=== PATIENT | male | born 1970 | race Caucasian/White ===

== ENCOUNTER 2016-10-11 02:50 | Emergency (ER) | payer SELFPAY ==
[~2016-10-11] VITALS: Ht 165.1 cm; Wt 69.1 kg
[~2016-10-11 02:50] MED LIST: CLEOCIN300 MG PO; CLINDAMYCIN HC300 MG PO; DELTASONE20 M1 PO; FLEXERIL10 MG PO; LORTAB 5-325 M1 EACH PO; MOTRIN600 MG PO; NAPROSYN500 MG PO; SEPTRA DS TABL1 EACH PO; ULTRAM50 MG PO; VALIUM5 MG PO
[2016-10-11] MEDS ORDERED: ILOTYCIN1 GM BOTH EYES (04:16)
[2016-10-11] MEDS ORDERED: PERCOCET 5/31 TABLET PO (04:16)
[2016-10-11 04:41] VITALS: BP 159/99
== END 2016-10-11 04:43 | disposition home or self-care (01) ==
LOC: EXP 02:50 → EME 02:50 → EXP 04:43
PROC: 3E0234Z Introduction of Serum, Toxoid and Vaccine into Muscle, Percutaneous Approach (ICD-10-PCS; principal; 2016-10-11)
DX: H16.133 Photokeratitis, bilateral (principal); W89.8XXA Exposure to other man-made visible and ultraviolet light, initial encounter; Z23 Encounter for immunization; F17.200 Nicotine dependence, unspecified, uncomplicated
CPT/HCPCS: 99281; 99283

== ENCOUNTER 2017-08-26 16:58 | Emergency (ER) | payer OTHER ==
[~2017-08-26] VITALS: Ht 167.6 cm; Wt 73.7 kg
[~2017-08-26 16:58] MED LIST changes: +ILOTYCIN1 GM BOTH EYES; +PERCOCET 5/31 TABLET PO
[2017-08-26] MEDS ORDERED: PERCOCET 5/31 TABLET PO (21:16)
[2017-08-26] MEDS ORDERED: VALIUM5 MG PO (21:16)
[2017-08-26] MEDS ORDERED: PREDNISONE10 MG PO (21:16)
[2017-08-26 21:30] VITALS: BP 146/109
== END 2017-08-26 21:39 | disposition home or self-care (01) ==
LOC: EME 16:58
DX: M54.5 Low back pain (principal); G89.29 Other chronic pain; F17.200 Nicotine dependence, unspecified, uncomplicated
CPT/HCPCS: 99281; 99284; J1100